=== PATIENT | male | born 1970 | race Caucasian/White ===

== ENCOUNTER → 2022-09-13 | Outpatient (CLI) | payer OTHER | LOC: WOUNDCARE 08:16 | PROVIDERS: ATTEND Family Medicine | DX: T23.391A Burn of third degree of multiple sites of right wrist and hand, initial encounter (principal); T31.0 Burns involving less than 10% of body surface; E66.01 Morbid (severe) obesity due to excess calories | CPT/HCPCS: 16020; G0463 ==

== ENCOUNTER → 2022-09-20 | Outpatient (CLI) | payer OTHER | LOC: WOUNDCARE 08:12 | PROVIDERS: ATTEND Family Medicine | DX: T23.391A Burn of third degree of multiple sites of right wrist and hand, initial encounter (principal); T31.0 Burns involving less than 10% of body surface; E66.01 Morbid (severe) obesity due to excess calories; I96 Gangrene, not elsewhere classified | CPT/HCPCS: 16020; G0463 ==

== ENCOUNTER → 2022-09-27 | Outpatient (CLI) | payer OTHER | LOC: WOUNDCARE 08:16 | PROVIDERS: ATTEND Family Medicine | DX: T23.399A Burn of third degree of multiple sites of unspecified wrist and hand, initial encounter (principal); T31.0 Burns involving less than 10% of body surface; E66.01 Morbid (severe) obesity due to excess calories; I96 Gangrene, not elsewhere classified | CPT/HCPCS: 11750; 16020; 87070; 87077; 87186; 87205; G0463 ==

== ENCOUNTER → 2022-10-04 | Outpatient (CLI) | payer OTHER | LOC: WOUNDCARE 08:11 | PROVIDERS: ATTEND Family Medicine | DX: T23.391A Burn of third degree of multiple sites of right wrist and hand, initial encounter (principal); I96 Gangrene, not elsewhere classified; T31.0 Burns involving less than 10% of body surface; E66.01 Morbid (severe) obesity due to excess calories; A49.02 Methicillin resistant Staphylococcus aureus infection, unspecified site; Z68.35 Body mass index [BMI] 35.0-35.9, adult | CPT/HCPCS: 16020; G0463 ==

== ENCOUNTER 2022-10-10 14:52 | Outpatient (RCR) | payer OTHER | END 2022-10-10 17:00 | disposition home or self-care (01) | PROVIDERS: ATTEND Family Medicine | DX: S61.409D Unspecified open wound of unspecified hand, subsequent encounter (principal); T23.391D Burn of third degree of multiple sites of right wrist and hand, subsequent encounter; T31.0 Burns involving less than 10% of body surface; E66.01 Morbid (severe) obesity due to excess calories; X58.XXXD Exposure to other specified factors, subsequent encounter ==

== ENCOUNTER → 2022-10-18 | Outpatient (CLI) | payer OTHER | LOC: WOUNDCARE 08:23 | PROVIDERS: ATTEND Family Medicine | DX: T23.391A Burn of third degree of multiple sites of right wrist and hand, initial encounter (principal); T31.0 Burns involving less than 10% of body surface; E66.01 Morbid (severe) obesity due to excess calories; I96 Gangrene, not elsewhere classified | CPT/HCPCS: 16020; G0463 ==

== ENCOUNTER → 2022-10-25 | Outpatient (CLI) | payer OTHER | LOC: WOUNDCARE 08:18 | PROVIDERS: ATTEND Family Medicine | DX: T23.041A Burn of unspecified degree of multiple right fingers (nail), including thumb, initial encounter (principal) | CPT/HCPCS: 99213 ==

== ENCOUNTER → 2022-10-31 | Outpatient (CLI) | payer OTHER | LOC: WOUNDCARE 08:20 | PROVIDERS: ATTEND Family Medicine | DX: T23.391A Burn of third degree of multiple sites of right wrist and hand, initial encounter (principal); T31.0 Burns involving less than 10% of body surface; E66.01 Morbid (severe) obesity due to excess calories | CPT/HCPCS: 99212 ==